=== PATIENT | female | born 2000 | race Caucasian/White ===

== ENCOUNTER 2021-11-21 20:21 | Emergency (ER) | payer OTHER ==
[~2021-11-21] VITALS: Ht 180.3 cm; Wt 79.5 kg
[2021-11-21 21:39] LABS: CLARITY,URINE CLEAR; COLOR,URINE YELLOW; GLUCOSE,URINE NEG (NEG)
[2021-11-21 21:40] LABS: BACTERIA,URINE FEW /HPF (0-FEW); NITRITE,URINE NEG (NEG); RBC,URINE OCC /HPF (0-2); SQUAMOUS EPITHELIAL CELL,UR MOD /LPF; U PREG PATIENT NEGATIVE (NEG); UROBILINOGEN,URINE 0.2 mg/dL (0.2 mg/dL); WBC,URINE OCC /HPF (0-4)
[2021-11-21 22:04] LABS: BASO # 0.1 x10^3/uL (0.0-0.2); BASO % 1 % (0-3); EOS # 0.2 x10^3/uL (0.0-0.7); EOS % 3 % (0-3); HEMATOCRIT 39.2 % (36.0-47.0); HEMOGLOBIN 13.1 g/dL (12.0-15.5); LYMPH # 2.7 x10^3/uL (1.0-4.8); LYMPH % 40 % (24-48); MEAN CORPUSCULAR HEMOGLOBIN 31 pg (25-35); MEAN CORPUSCULAR HGB CONC 34 g/dL (31-37); MEAN CORPUSCULAR VOLUME 94 fL (79-100); MONO # 0.5 x10^3/uL (0.0-1.1); MONO % 7 % (0-9); NEUT # 3.4 x10^3uL (1.8-7.7); NEUT % 50 % (31-73); PLATELET COUNT 222 x10^3/uL (140-400); RED BLOOD COUNT 4.18 x10^6/uL (3.50-5.40); RED CELL DISTRIBUTION WIDTH 12.2 % (11.5-14.5); WHITE BLOOD COUNT 6.7 x10^3/uL (4.0-11.0)
[2021-11-21 22:12] LABS: CALCIUM 9.3 mg/dL (8.5-10.1); GFR 69.3; POTASSIUM 4.1 mmol/L (3.5-5.1)
[2021-11-21 22:18] LABS: ALBUMIN 3.8 g/dL (3.4-5.0); ALBUMIN/GLOBULIN RATIO 1.2 (1.0-1.7); TOTAL BILIRUBIN 0.6 mg/dL (0.2-1.0); TOTAL PROTEIN 7.1 g/dL (6.4-8.2)
[2021-11-21] MEDS ORDERED: CONTRAST GIVEN. MC PRN (23:45)
[2021-11-21] MEDS ORDERED: IOHEXOL 240 MG/ML 50ML VIAL. ONE (23:50)
--- NOTE | 2021-11-22 00:25 | PHYS DOC ---
Past History Past Surgical History: Tonsillectomy, Other Additional Past Surgical Histo: knee [id number] Alcohol Use: None General Adult EDM: Chief Complaint: ABDOMINAL PAIN HPI: HPI: ".. I be been having off and on abdomen pain the past year.. the pain is much worse tonight.. down here on right..." Patient is a 21 year old female who presents with right lower quadrant abdomen pain. Patient states pain has been much worse today. Patient has had history of intermittent abdomen pain for past year. Patient denies any history of bad food intake. Patient denies any history of trauma. Patient denies any history of vaginal discharge or dysuria. Patient denies any significant history of UTIs or ovarian cyst. No history of significant dysmenorrhea but does have cramping with her periods. Her last period was on .. The patient no history of STDs. No history of . Patient has had some history of constipation. Patient is currently a [employer] student. Patient follows with Dr. Pastrana as a primary. Patient seen in [facility] bed 3 initially. Patient sent to the ER for evaluation of appendicitis. Review of Systems: Review of Systems: Constitutional: Denies fever or chills Eyes: Denies change in visual acuity HENT: Denies nasal congestion or sore throat Respiratory: Denies cough or shortness of breath Cardiovascular: Denies chest pain or edema GI: Complains of right lower quadrant abdominal pain, nausea,. Denies vomiting, bloody stools or diarrhea : Denies dysuria Musculoskeletal: Denies back pain or joint pain Integument: Denies rash Neurologic: Denies headache, focal weakness or sensory changes Endocrine: Denies polyuria or polydipsia Lymphatic: Denies swollen glands Psychiatric: Denies depression or anxiety Family History: Family History: Mother has history of ovarian cyst Current Medications: Current Meds: Current Medications Medications (Trade) Dose Ordered Sig/Linda Start Time Stop Time Status Last Admin Dose Admin Info (Do NOT chart on this entry -- for MONITORING) 1 each PRN DAILY PRN 11/21/21 23:45 11/23/21 23:44 Iohexol (Omnipaque 240 Mg/ml) 50 ml STK-MED ONCE 11/21/21 23:50 11/21/21 23:51 DC Iohexol (Omnipaque 300 Mg/ml) 75 ml 1X ONCE 11/22/21 00:30 11/22/21 00:31 Allergies: Allergies: Allergies Coded Allergies Type Severity Reaction Last Updated Verified No Known Drug Allergies 11/21/21 No Physical Exam: PE: Constitutional: Well developed, well nourished, moderate acute distress, non- toxic appearance. [] HENT: Normocephalic, atraumatic, bilateral external ears normal, oropharynx moist, no oral exudates, nose normal. [] Eyes: PERRLA, EOMI, conjunctiva normal, no discharge. [] Neck: Normal range of motion, no tenderness, supple, no stridor. [] Cardiovascular:Heart rate regular rhythm, no murmur [] Lungs & Thorax: Bilateral breath sounds equal at apex auscultation [] Abdomen: Bowel sounds normal, soft, right lower quadrant tenderness, no masses, no pulsatile masses. Distended. Rebound right lower quadrant. Patient declines rectal pelvic exam at this time. Skin: Warm, dry, no erythema, no rash. [] Back: No tenderness, no CVA tenderness. [] Extremities: No tenderness, no cyanosis, no clubbing, ROM intact, no edema. No true psoas sign. Mild discomfort in abdomen when she jumps up and down. Right knee scar. Neurologic: Alert and oriented X 3, normal motor function, normal sensory function, no focal deficits noted. [] Psychologic: Affect anxious, judgement normal, mood normal. [] Current Patient Data: Labs: Laboratory Tests Test 11/21/21 19:53 11/21/21 20:35 11/21/21 21:40 POC Urine HCG, Qualitative hcg negative (Negative) Urine Collection Type Unknown Urine Color Yellow Urine Clarity Clear Urine pH 7.0 Urine Specific [place] 1.020 Urine Protein Neg (NEG-TRACE) Urine Glucose (UA) Neg mg/dL (NEG) Urine Ketones (Stick) Neg mg/dL (NEG) Urine Blood Neg (NEG) Urine Nitrite Neg (NEG) Urine Bilirubin Neg (NEG) Urine Urobilinogen Dipstick 0.2 mg/dL (0.2 mg/dL) Urine Leukocyte Esterase Neg (NEG) Urine RBC Occ /HPF (0-2) Urine WBC Occ /HPF (0-4) Urine Squamous Epithelial Cells Mod /LPF Urine Bacteria Few /HPF (0-FEW) Urine Test Negative (NEG) White Blood Count 6.7 x10^3/uL (4.0-11.0) Red Blood Count 4.18 x10^6/uL (3.50-5.40) Hemoglobin 13.1 g/dL (12.0-15.5) Hematocrit 39.2 % (36.0-47.0) Mean Corpuscular Volume 94 fL (79-100) Mean Corpuscular Hemoglobin 31 pg (25-35) Mean Corpuscular Hemoglobin Concent 34 g/dL (31-37) Red Cell Distribution Width 12.2 % (11.5-14.5) Platelet Count 222 x10^3/uL (140-400) Neutrophils (%) (Auto) 50 % (31-73) Lymphocytes (%) (Auto) 40 % (24-48) Monocytes (%) (Auto) 7 % (0-9) Eosinophils (%) (Auto) 3 % (0-3) Basophils (%) (Auto) 1 % (0-3) Neutrophils # (Auto) 3.4 x10^3uL (1.8-7.7) Lymphocytes # (Auto) 2.7 x10^3/uL (1.0-4.8) Monocytes # (Auto) 0.5 x10^3/uL (0.0-1.1) Eosinophils # (Auto) 0.2 x10^3/uL (0.0-0.7) Basophils # (Auto) 0.1 x10^3/uL (0.0-0.2) Sodium Level 145 mmol/L (136-145) Potassium Level 4.1 mmol/L (3.5-5.1) Chloride Level 107 mmol/L (98-107) Carbon Dioxide Level 30 mmol/L (21-32) Anion Gap 8 (6-14) Blood Urea Nitrogen 16 mg/dL (7-20) Creatinine 1.0 mg/dL (0.6-1.0) Estimated GFR (Cockcroft-Gault) 69.3 BUN/Creatinine Ratio 16 (6-20) Glucose Level 81 mg/dL (70-99) Calcium Level 9.3 mg/dL (8.5-10.1) Total Bilirubin 0.6 mg/dL (0.2-1.0) Aspartate Amino Transferase (AST) 15 U/L (15-37) Alanine Aminotransferase (ALT) 22 U/L (14-59) Alkaline Phosphatase 50 U/L (46-116) Total Protein 7.1 g/dL (6.4-8.2) Albumin 3.8 g/dL (3.4-5.0) Albumin/Globulin Ratio 1.2 (1.0-1.7) Vital Signs: Vital Signs Date Time Temp Pulse Resp B/P (MAP) Pulse Ox O2 Delivery O2 Flow Rate FiO2 11/21/21 21:23 98.9 82 16 132/108 (116) 99 Room Air EKG: EKG: [] Radiology/Procedures: Radiology/Procedures: [[address] [address] IMAGING REPORT Signed PATIENT: CAMERON PULIDO ACCOUNT: [id number] : 2000 LOCATION: ER AGE: 21 SEX: F EXAM STATUS: REG ER ORD. PHYSICIAN: YAYO ROSEN MD REASON: Rt. mid abdomen pain- eval . torsiion ovary Rt. PROCEDURE: TRANSVAGINAL EXAM: ULTRASOUND PELVIS INDICATION: Reason: Rt. mid abdomen pain- eval . torsiion ovary Rt. / Spl. Instructions: / History: . Last menstrual period was 11/10/2021. COMPARISON: None available. TECHNIQUE: Transvaginal sonography was performed. FINDINGS: The uterus measures 7 x 3.7 x 2.6 cm. The endometrium measures 0.3 cm. There is no focal myometrial abnormality The right ovary measures 4.1 x 3 x 2.5 cm. The left ovary measures 2.9 x 1.7 x 1.7 cm. Arterial and venous flow is seen to both ovaries. Small follicles are seen predominantly peripherally about the right ovary. Trace free fluid likely physiologic. There is marked distention of the bladder. IMPRESSION: 1. Arterial and venous flow are seen to both ovaries. No evidence for ovarian torsion. 2. Follicles are seen predominantly peripherally. This is a nonspecific finding but could be seen with polycystic ovarian syndrome. Electronically signed by: Aryan Harding MD (11/22/2021 3:42 AM) [facility] DICTATED AND SIGNED BY: ARYAN HARDING MD DATE: 04336 CC: YAYO ROSEN MD; АНДРЕЙ PASTRANA ~ ][place] [address] IMAGING REPORT Signed PATIENT: CAMERON PULIDO ACCOUNT: [id number] : 2000 LOCATION: ER AGE: 21 SEX: F EXAM STATUS: REG ER ORD. PHYSICIAN: YAYO ROSEN MD REASON: ABDOMINAL PAIN, mostly right sided Omni 300 75cc PROCEDURE: CT ABD PELV W/ORAL&IV CONTRAST EXAM: CT Abdomen and Pelvis with IV contrast CLINICAL HISTORY: Reason: ABDOMINAL PAIN, mostly right sided Omni 300 75cc COMPARISON: none TECHNIQUE: Helical CT of the abdomen and pelvis was performed following the administration of intravenous contrast. Axial, coronal and sagittal reformatted images were generated. PQRS compliance statement - One or more of the following individualized dose reduction techniques were utilized for this study: 1. Automated exposure control 2. Adjustment of the mA and/or kV according to patient size 3. Use of iterative reconstruction technique FINDINGS: Lower Chest: Lung bases are clear. Abdomen and Pelvis: Liver is unremarkable. Gallbladder is normal. No biliary ductal dilatation. Pancreas, spleen and adrenal glands are unremarkable. Symmetric nephrograms. No focal renal lesion. No hydronephrosis. No hydroureter. Bladder is moderately distended. Appendix is normal. Moderate to large volume colonic stool content is seen. No small or large bowel dilatation. No bowel obstruction. Small right adnexal cystic structures, likely follicles. Mild edematous appearance of the right ovary. There is normal in caliber. No abdominal or pelvic lymphadenopathy. No abdominal or pelvic ascites. No aggressive osseous lesion is seen. IMPRESSION: 1. Moderate to large volume colonic stool content maybe seen with constipation. No bowel obstruction. 2. The right ovary appears mildly enlarged/edematous with small follicles. Although this could be normal in appearance for this patient, if there is clinical concern for adnexal pathology suggest torsion, ultrasound would provide additional details. Electronically signed by: Aryan Harding MD (11/22/2021 1:12 AM) [facility] DICTATED AND SIGNED BY: ARYAN HARDING MD DATE: 11/22/21106 CC: YAYO ROSEN MD; АНДРЕЙ PASTRANA ~[place] [address] IMAGING REPORT Signed PATIENT: CAMERON PULIDO ACCOUNT: [id number] : 2000 LOCATION: ER AGE: 21 SEX: F EXAM STATUS: REG ER ORD. PHYSICIAN: YAYO ROSEN MD REASON: Rt. mid abdomen pain- eval . torsiion ovary Rt. PROCEDURE: TRANSVAGINAL Heart Score: C/O Chest Pain: N/A Risk Factors: Risk Factors: DM, Current or recent (<one month) smoker, HTN, HLP, family history of CAD, obesity. Risk Scores: Score 0 - 3: 2.5% MACE over next 6 weeks - Discharge Home Score 4 - 6: 20.3% MACE over next 6 weeks - Admit for Clinical Observation Score 7 - 10: 72.7% MACE over next 6 weeks - Early Invasive Strategies Course & Med Decision Making: Course & Med Decision Making Pertinent Labs and Imaging studies reviewed. (See chart for details) Patient stay on a clear fluid diet for the next 48 hours. No solids. No milk products. Expect some cramping with passage of stool burden. Patient re- examined no improvement. Take Tylenol and ibuprofen for pain. Review ED work- up with primary care. Return if any concerns. If this is a chronic reoccurring and pain issue in association of her menses consider control. Discussed this with her primary care. Overall presentation consistent with constipation. Possible polycystic ovaries, would also consider endometriosis in the differential. Impression: 1. Right lower abdomen pain 2. Constipation 3. Polycystic ovaries-right ovary enlarged at 4.1 x 3 x 2.5. cm ( No obvious torsion on US) [] Dragon Disclaimer: Dragon Disclaimer: This electronic medical record was generated, in whole or in part, using a voice recognition dictation system. Departure Departure: Referrals: АНДРЕЙ PASTRANA (PCP) Lee Disclaimer This chart was dictated in whole or in part using Voice Recognition software in a busy, high-work load, and often noisy Emergency Department environment. It may contain unintended and wholly unrecognized errors or omissions. Dragon Disclaimer This chart was dictated in whole or in part using Voice Recognition software in a busy, high-work load, and often noisy Emergency Department environment. It m ay contain unintended and wholly unrecognized errors or omissions. YAYO ROSEN MD Nov 22, 2021 00:25
[2021-11-22] MEDS ORDERED: IOHEXOL 300 MG/ML 75 ML VIAL. IV ONE (00:30)
--- NOTE | 2021-11-22 01:15 | RAD ---
EXAM: CT Abdomen and Pelvis with IV contrast CLINICAL HISTORY: Reason: ABDOMINAL PAIN, mostly right sided Omni 300 75cc COMPARISON: none TECHNIQUE: Helical CT of the abdomen and pelvis was performed following the administration of intrave nous contrast. Axial, coronal and sagittal reformatted images were generated. PQRS compliance statement - One or more of the following individualized dose reduction techniques wer e utilized for this study: 1. Automated exposure control 2. Adjustment of the mA and/or kV according to patient size 3. Use of iterative reconstruction technique FINDINGS: Lower Chest: Lung bases are clear. Abdomen and Pelvis: Liver is unremarkable. Gallbladder is normal. No biliary ductal dilatation. Pancreas, spleen and adre nal glands are unremarkable. Symmetric nephrograms. No focal renal lesion. No hydronephrosis. No hydroureter. Bladder is moderatel y distended. Appendix is normal. Moderate to large volume colonic stool content is seen. No small or large bowel d ilatation. No bowel obstruction. Small right adnexal cystic structures, likely follicles. Mild edemat ous appearance of the right ovary. There is normal in caliber. No abdominal or pelvic lymphadenopathy. No abdominal or pelvic ascites. No aggressive osseous lesion is seen. IMPRESSION: 1. Moderate to large volume colonic stool content maybe seen with constipation. No bowel obstruction . 2. The right ovary appears mildly enlarged/edematous with small follicles. Although this could be no rmal in appearance for this patient, if there is clinical concern for adnexal pathology suggest torsi on, ultrasound would provide additional details. Electronically signed by: Aryan Cifuentes MD (11/22/2021 1:12 AM) [facility]
[2021-11-22 01:23] VITALS: BP 143/89
[2021-11-22] MEDS ORDERED: MAGNESIUM HYDROXIDE 2,400 MG/30 ML ORAL.SUSP. PO ONE (02:00)
--- NOTE | 2021-11-22 03:45 | RAD ---
EXAM: ULTRASOUND PELVIS INDICATION: Reason: Rt. mid abdomen pain- eval . torsiion ovary Rt. / Spl. Instructions: / History: . Last menstrual period was 11/10/2021. COMPARISON: None available. TECHNIQUE: Transvaginal sonography was performed. FINDINGS: The uterus measures 7 x 3.7 x 2.6 cm. The endometrium measures 0.3 cm. There is no focal myometrial abnormality The right ovary measures 4.1 x 3 x 2.5 cm. The left ovary measures 2.9 x 1.7 x 1.7 cm. Arterial a nd venous flow is seen to both ovaries. Small follicles are seen predominantly peripherally about the right ovary. Trace free fluid likely physiologic. There is marked distention of the bladder. IMPRESSION: 1. Arterial and venous flow are seen to both ovaries. No evidence for ovarian torsion. 2. Follicles are seen predominantly peripherally. This is a nonspecific finding but could be seen wi th polycystic ovarian syndrome. Electronically signed by: Aryan Cifuentes MD (11/22/2021 3:42 AM) [facility]
== END 2021-11-22 04:47 | disposition home or self-care (01) ==
LOC: ER 20:21
DX: K59.00 Constipation, unspecified (principal); E28.2 Polycystic ovarian syndrome
CPT/HCPCS: 36415; 74177; 76830; 80053; 81001; 81025; 85025; 99285; Q9967